=== PATIENT | female | born 1940 | race African-American/Black ===

== ENCOUNTER 2016-07-29 09:18 | Emergency (ER) | payer MEDICARE, MEDICAID ==
[~2016-07-29] VITALS: Ht 165.1 cm; Wt 72.0 kg
[~2016-07-29 09:18] MED LIST: ACET-3161 PO; ALLO100T PO; AMLO10TA80 PO; ATOR20TA PO; B50 PO; BENA40TA3 PO; CALC0.253 PO; CALC667C PO; CLON1PAT11 TD; FERR142T6 PO; FURO40TA5 PO; HYDR-3927 GT; KDUR20 PO; LORA0.5T2 PO; RISP1TAB26 PO; TRAV5DRO4 BOTHEYE; VALS320T9 PO; [UNRECOGNIZED DRUG - CODE] BOTHEYE; [UNRECOGNIZED DRUG - CODE] IJ
[2016-07-29 10:53] LABS: BASOPHILS % 0.5 % (0.0-2.0); DIFFERENTIAL COMMENT 0; EOSINOPHILS % 1.8 % (0.0-5.0); LYMPHOCYTES % 19.4 % (20.0-50.0); MEAN CORPUSCULAR HEMOGLOBIN 34.5 pg (28.0-32.0); MEAN CORPUSCULAR HGB CONC 33.3 g/dL (31.0-37.0); MEAN CORPUSCULAR VOLUME 103.7 fL (81.0-99.0); MEAN PLATELET VOLUME 8.4 fl (7.4-10.4); MONOCYTES % 12.8 % (2.0-8.0); NEUTROPHILS % 65.5 % (40.0-76.0); PLATELET 159 x1000/uL (130-400); RED BLOOD CELL COUNT 2.89 mill/uL (4.2-5.4); RED CELL DISTRIBUTION WIDTH 15.7 % (11.6-14.6); WHITE BLOOD COUNT 5.2 x1000/uL (4.5-11.0)
[2016-07-29 10:56] LABS: PARTIAL THROMBOPLASTIN TIME 23.4 sec (24.0-34.0); PROTHROMBIN TIME 10.9 sec
[2016-07-29 11:08] LABS: ALANINE AMINOTRANSFERASE 74 IU/L (13-61); ALBUMIN 3.4 g/dL (3.4-5.0); ANION GAP 12; CARBON DIOXIDE 32 mEq/L (21-32); CHLORIDE 100 mEq/L (98-107); INDEX HEMOLYSI 1 (1-3); INDEX ICTERIC 1 (1-4); INDEX LIPEMIC 1 (1-3); NT PRO B-TYPE NATRIURETIC PEP 10129 pg/mL (5-125); TROPONIN I < 0.02 ng/mL (0.00-0.04); UREA NITROGEN BLOOD 19 mg/dL (7-21); eGFR 15 mL/min (>60)
[2016-07-29 16:27] VITALS: BP 135/70
== END 2016-07-29 16:29 | disposition home or self-care (01) ==
LOC: ER 11:53
DX: N19 Unspecified kidney failure (principal); I12.9 Hypertensive chronic kidney disease with stage 1 through stage 4 chronic kidney disease, or unspecified chronic kidney disease; N18.9 Chronic kidney disease, unspecified; M19.90 Unspecified osteoarthritis, unspecified site; Z79.1 Long term (current) use of non-steroidal anti-inflammatories (NSAID); Z79.899 Other long term (current) drug therapy; Z99.2 Dependence on renal dialysis
CPT/HCPCS: 36415; 71010; 80053; 83880; 84484; 85025; 85610; 85730; 93005; 99285

== ENCOUNTER 2016-12-17 12:17 | Inpatient (IN) | payer MEDICARE, MEDICAID ==
[~2016-12-17] VITALS: Ht 165.1 cm; Wt 71.7 kg
[~2016-12-17 12:17] MED LIST changes: +VALS320T2 PO; -VALS320T9 PO
[2016-12-17 13:04] LABS: BASOPHILS % 0.8 % (0.0-2.0); HEMATOCRIT. 35.6 % (36.0-48.0); LYMPHOCYTES % 8.5 % (20.0-50.0); MEAN CORPUSCULAR HEMOGLOBIN 33.1 pg (28.0-32.0); MEAN CORPUSCULAR VOLUME 98.6 fL (81.0-99.0); MEAN PLATELET VOLUME 7.7 fl (7.4-10.4); MONOCYTES % 7.1 % (2.0-8.0); NEUTROPHILS % 82.6 % (40.0-76.0); PLATELET 148 x1000/uL (130-400); RED BLOOD CELL COUNT 3.61 mill/uL (4.2-5.4); RED CELL DISTRIBUTION WIDTH 17.8 % (11.6-14.6)
[2016-12-17 13:12] LABS: PROTHROMBIN TIME 10.1 sec (9.4-11.6)
[2016-12-17 13:14] LABS: CARBON DIOXIDE 34 mEq/L (21-32); CHLORIDE 97 mEq/L (98-107)
[2016-12-17] MEDS ORDERED: MORPHINE SULFATE 4 MG/ML CPJ (NOT FOR IM USE) IV ONE ×2 (13:15→15:45)
[2016-12-17 13:21] LABS: TROPONIN I < 0.02 ng/mL (0.00-0.04)
[2016-12-17] MEDS ORDERED: ASPIRIN 325MG EC TABLET PO ONE (14:15)
[2016-12-17] MEDS ORDERED: AMLODIPINE 10MG TABLET PO ONE (14:45)
[2016-12-17] MEDS ORDERED: DIPHENHYDRAMINE 50MG/ML VIAL IV PRN (15:45)
[2016-12-17] MEDS ORDERED: DOCUSATE SODIUM 100MG CAPSULE PO PRN (15:45)
[2016-12-17] MEDS ORDERED: MAGNESIUM/ALUMINUM HYDROXIDE/SIMETHICONE 30ML UDC PO PRN (15:45)
[2016-12-17] MEDS ORDERED: ACETAMINOPHEN 325MG TABLET PO PRN (15:45)
[2016-12-17] MEDS ORDERED: LORAZEPAM 0.5MG TABLET PO PRN (15:45)
[2016-12-17 16:50] VITALS: BP 171/78
[2016-12-17 18:00] VITALS: BP 171/78
[2016-12-17] MEDS: CLONIDINE 0.1MG TABLET PO PRN (18:20)
[2016-12-17 20:00] VITALS: BP 157/77
[2016-12-18] VITALS: BP 160/71
[2016-12-18] MEDS: CLONIDINE 0.1MG TABLET PO PRN (00:26)
[2016-12-18 04:00] VITALS: BP 156/68
[2016-12-18] MEDS: HYDROCODONE/ACETAMINOPHEN 5/325MG TABLET PO PRN ×3 (04:46→18:48)
[2016-12-18] MEDS ORDERED: DEXTROSE 50% WATER 50ML SYRINGE IV PRN (07:00)
[2016-12-18] MEDS ORDERED: BLOOD SUGAR DIAGNOSTIC STRIP TEST SCH (07:20)
[2016-12-18 07:25] LABS: HEMATOCRIT. 32.6 % (36.0-48.0); HEMOGLOBIN. 10.7 g/dL (12.0-16.0); MEAN CORPUSCULAR HEMOGLOBIN 32.7 pg (28.0-32.0); MEAN CORPUSCULAR VOLUME 99.2 fL (81.0-99.0); MEAN PLATELET VOLUME 7.8 fl (7.4-10.4); PLATELET 145 x1000/uL (130-400); RED BLOOD CELL COUNT 3.29 mill/uL (4.2-5.4); RED CELL DISTRIBUTION WIDTH 17.3 % (11.6-14.6)
[2016-12-18 07:43] LABS: CARBON DIOXIDE 29 mEq/L (21-32); CHLORIDE 97 mEq/L (98-107); HDL CHOLESTEROL 93 mg/dL (40-59); LDL CHOLESTEROL 35 mg/dL (5-100)
[2016-12-18] MEDS ORDERED: INSULIN LISPRO 100 UNITS/ML SUBCUT SCH (07:50)
[2016-12-18] MEDS: ASPIRIN 81MG EC TABLET PO SCH (08:36)
[2016-12-18 10:15] VITALS: BP 146/65
[2016-12-18] MEDS: AMLODIPINE 10MG TABLET PO SCH ×2 (11:00→18:47)
[2016-12-18] MEDS ORDERED: LEVOFLOXACIN 500MG PREMIX 100 ML IV SCH (12:00)
[2016-12-18 13:36] LABS: PLATELET ESTIMATE NORMAL
[2016-12-18] MEDS: CALCIUM ACETATE 667MG CAPSULE PO SCH ×2 (15:07→17:50)
[2016-12-18 16:00] VITALS: BP 144/67
[2016-12-18 20:00] VITALS: BP 139/62
[2016-12-18] MEDS: OMEPRAZOLE 20MG CAPSULE EXTENDED RELEASE PO SCH (20:44)
[2016-12-18] MEDS: BENAZEPRIL 20MG TABLET PO SCH (20:44)
[2016-12-19] VITALS: BP 152/66
[2016-12-19] MEDS: HYDROCODONE/ACETAMINOPHEN 5/325MG TABLET PO PRN ×2 (01:21→11:27)
[2016-12-19 04:00] VITALS: BP 151/89
[2016-12-19] MEDS: OMEPRAZOLE 20MG CAPSULE EXTENDED RELEASE PO SCH (06:32)
[2016-12-19 06:40] LABS: HEMATOCRIT 32.4 % (36.0-48.0); HEMOGLOBIN 10.8 g/dL (12.0-16.0); MEAN CORPUSCULAR HEMOGLOBIN 33.2 pg (28.0-32.0); MEAN CORPUSCULAR VOLUME 99.8 fL (81.0-99.0); PLATELET 122 x1000/uL (130-400); RED BLOOD CELL COUNT 3.25 mill/uL (4.2-5.4); RED CELL DISTRIBUTION WIDTH 17.8 % (11.6-14.6)
[2016-12-19 07:39] VITALS: BP 134/65
[2016-12-19] MEDS: AMLODIPINE 10MG TABLET PO SCH (08:21)
[2016-12-19] MEDS: CALCIUM ACETATE 667MG CAPSULE PO SCH ×3 (08:21→17:16)
[2016-12-19] MEDS: ASPIRIN 81MG EC TABLET PO SCH (08:21)
[2016-12-19] MEDS: FOLIC ACID/VITAMIN B COMP W-C TABLET PO SCH (08:21)
[2016-12-19 12:00] VITALS: BP 134/89
[2016-12-19 15:33] LABS: T4 FREE 1.37 ng/dL (0.76-1.46)
[2016-12-19 15:35] VITALS: BP 151/66
[2016-12-19 18:29] LABS: CREATINE KINASE 62 IU/L (26-192); CREATINE KINASE MB FRACTION 1.2 ng/mL (0.5-3.6); TROPONIN I < 0.02 ng/mL (0.00-0.04)
[2016-12-19 20:00] VITALS: BP 153/61
[2016-12-19] MEDS: BENAZEPRIL 20MG TABLET PO SCH (20:57)
[2016-12-20] VITALS: BP 145/59
[2016-12-20 01:15] LABS: CREATINE KINASE 57 IU/L (26-192)
[2016-12-20 01:17] LABS: CREATINE KINASE MB FRACTION 1.5 ng/mL (0.5-3.6); TROPONIN I < 0.02 ng/mL (0.00-0.04)
[2016-12-20] MEDS: HYDROCODONE/ACETAMINOPHEN 5/325MG TABLET PO PRN ×3 (02:10→22:15)
[2016-12-20 04:00] VITALS: BP 144/82
[2016-12-20 08:00] VITALS: BP 157/73
[2016-12-20] MEDS: AMLODIPINE 10MG TABLET PO SCH (08:50)
[2016-12-20] MEDS: CALCIUM ACETATE 667MG CAPSULE PO SCH ×2 (09:06→13:46)
[2016-12-20] MEDS: FAMOTIDINE 20MG TABLET PO SCH (09:06)
[2016-12-20] MEDS: FOLIC ACID/VITAMIN B COMP W-C TABLET PO SCH (09:06)
[2016-12-20] MEDS: ASPIRIN 81MG EC TABLET PO SCH (09:06)
[2016-12-20] MEDS ORDERED: LEVOFLOXACIN 500MG PREMIX 100 ML IV SCH (11:00)
[2016-12-20 12:00] VITALS: BP 156/72
[2016-12-20 12:12] LABS: BASOPHILS % 1.4 % (0.0-2.0); EOSINOPHILS % 1.7 % (0.0-5.0); HEMATOCRIT. 32.7 % (36.0-48.0); HEMOGLOBIN. 10.9 g/dL (12.0-16.0); LYMPHOCYTES % 13.4 % (20.0-50.0); MEAN CORPUSCULAR HEMOGLOBIN 32.7 pg (28.0-32.0); MEAN CORPUSCULAR VOLUME 98.1 fL (81.0-99.0); MEAN PLATELET VOLUME 7.6 fl (7.4-10.4); MONOCYTES % 8.6 % (2.0-8.0); NEUTROPHILS % 74.9 % (40.0-76.0); PLATELET 147 x1000/uL (130-400); RED BLOOD CELL COUNT 3.33 mill/uL (4.2-5.4); RED CELL DISTRIBUTION WIDTH 17.7 % (11.6-14.6)
[2016-12-20 12:37] LABS: CARBON DIOXIDE 30 mEq/L (21-32); CHLORIDE 99 mEq/L (98-107); CREATINE KINASE 61 IU/L (26-192); CREATINE KINASE MB FRACTION 1.4 ng/mL (0.5-3.6); PHOSPHORUS 1.7 mg/dL (2.5-4.9); TROPONIN I < 0.02 ng/mL (0.00-0.04)
[2016-12-20 16:20] VITALS: BP 147/56
[2016-12-20] MEDS ORDERED: SODIUM PHOS,M-BASIC-D-BASIC 15 MM in DEXT 5% WATER 245 ML IV NR (17:00)
[2016-12-20 20:00] VITALS: BP 148/54
[2016-12-20] MEDS ORDERED: EPOETIN ALFA 4000UNITS/ML VIAL SUBCUT SCH (21:00)
[2016-12-21] VITALS (25 sets, daily range): BP systolic 131–164; BP diastolic 53–91
[2016-12-21 07:08] LABS: PARTIAL THROMBOPLASTIN TIME 28.6 sec (23.4-31.0); PROTHROMBIN TIME 10.7 sec (9.4-11.6)
[2016-12-21] MEDS ORDERED: IOHEXOL-300 100 ML BOTTLE ONE (07:25)
[2016-12-21] MEDS ORDERED: LIDOCAINE HCL 1% 20ML VIAL (Pyxis) INJ ONE (07:26)
[2016-12-21 07:41] LABS: BASOPHILS % 0.8 % (0.0-2.0); EOSINOPHILS % 3.3 % (0.0-5.0); HEMATOCRIT. 32.5 % (36.0-48.0); HEMOGLOBIN. 10.9 g/dL (12.0-16.0); LYMPHOCYTES % 22.3 % (20.0-50.0); MEAN CORPUSCULAR HEMOGLOBIN 33.2 pg (28.0-32.0); MEAN CORPUSCULAR VOLUME 98.6 fL (81.0-99.0); MEAN PLATELET VOLUME 8.1 fl (7.4-10.4); MONOCYTES % 13.7 % (2.0-8.0); NEUTROPHILS % 59.9 % (40.0-76.0); PLATELET 158 x1000/uL (130-400); RED BLOOD CELL COUNT 3.29 mill/uL (4.2-5.4); RED CELL DISTRIBUTION WIDTH 17.7 % (11.6-14.6)
[2016-12-21] MEDS ORDERED: FENTANYL CITRATE/PF 50MCG/ML 2ML VIAL ONE (07:47)
[2016-12-21] MEDS ORDERED: MIDAZOLAM HCL 2 MG/2 ML VIAL ONE (07:47)
[2016-12-21] MEDS ORDERED: ATROPINE SULFATE 0.1MG/ML 10ML DISP.SYRIN ONE (07:49)
[2016-12-21 08:26] LABS: BG BASE EXCESS 2.1 mmol/L (-2.0-2.0); BG CARBOXYHEMOGLOBIN 0.5 % (0.5-1.5); BG DEOXYHEMOGLOBIN 16.1 % (0.0-5.0); BG FRACTION INSPIRED OXYGEN 30; BG HCO3 ACT 27.8 mmol/L (22.0-26.0); BG METHEMOGLOBIN 0.3 % (0.0-1.5); BG OXYGEN SATURATION 83.8 % (92.0-98.5); BG OXYHEMOGLOBIN 83.1 % (94.0-97.0); BG PH 7.381 (7.350-7.450); BG PO2 49.8 mmHg (75.0-100.0); BG SAMPLE SITE PA LINE; BG TOTAL HEMOGLOBIN 12.1 g/dL (12.0-18.0); BG VENT MODE NASAL CANNULA
[2016-12-21 08:28] LABS: BG BASE EXCESS 2.3 mmol/L (-2.0-2.0); BG CARBOXYHEMOGLOBIN 0.6 % (0.5-1.5); BG DEOXYHEMOGLOBIN 0.6 % (0.0-5.0); BG FRACTION INSPIRED OXYGEN 30; BG HCO3 ACT 27.3 mmol/L (22.0-26.0); BG METHEMOGLOBIN 0.1 % (0.0-1.5); BG OXYGEN SATURATION 99.4 % (92.0-98.5); BG OXYHEMOGLOBIN 98.7 % (94.0-97.0); BG PCO2 44.1 mmHg (35.0-45.0); BG PO2 196.8 mmHg (75.0-100.0); BG SAMPLE SITE A-LINE; BG TOTAL HEMOGLOBIN 12.3 g/dL (12.0-18.0); BG VENT MODE NASAL CANNULA
[2016-12-21] MEDS ORDERED: HYDRALAZINE 20MG/ML VIAL ONE (08:31)
[2016-12-21 08:34] LABS: PHOSPHORUS 4.3 mg/dL (2.5-4.9)
[2016-12-21 08:36] LABS: BG BASE EXCESS 3.4 mmol/L (-2.0-2.0); BG CARBOXYHEMOGLOBIN 0.6 % (0.5-1.5); BG DEOXYHEMOGLOBIN 16.8 % (0.0-5.0); BG FRACTION INSPIRED OXYGEN 30; BG HCO3 ACT 29.5 mmol/L (22.0-26.0); BG METHEMOGLOBIN 0.2 % (0.0-1.5); BG OXYGEN SATURATION 83.1 % (92.0-98.5); BG OXYHEMOGLOBIN 82.4 % (94.0-97.0); BG PCO2 51.5 mmHg (35.0-45.0); BG PH 7.376 (7.350-7.450); BG PIP 0 cmH2O; BG PO2 48.1 mmHg (75.0-100.0); BG SAMPLE SITE PA LINE; BG VENT MODE NASAL CANNULA
[2016-12-21] MEDS: AMLODIPINE 10MG TABLET PO SCH ×2 (08:55→11:17)
[2016-12-21] MEDS: ASPIRIN 81MG EC TABLET PO SCH ×2 (08:55→11:17)
[2016-12-21] MEDS: FAMOTIDINE 20MG TABLET PO SCH ×2 (08:55→11:17)
[2016-12-21] MEDS: FOLIC ACID/VITAMIN B COMP W-C TABLET PO SCH ×2 (08:55→11:17)
[2016-12-21] MEDS ORDERED: ATROPINE SULFATE 1MG/10ML SYR IV PRN (09:30)
[2016-12-21] MEDS: HYDROCODONE/ACETAMINOPHEN 5/325MG TABLET PO PRN (11:10)
[2016-12-21] MEDS ORDERED: METOPROLOL TARTRATE 25MG TABLET PO SCH (21:00)
== END 2016-12-21 18:50 | disposition home or self-care (01) | DRG 286 ==
LOC: EDBD → ER 12:24 → EDBEDREQ 14:50 → EDBEDREQTM 14:50 → ENRESERV 15:31 → 6WST 16:43 → 3WST 12-21 09:10
PROVIDERS: ADMIT Internal Medicine; ATTEND Internal Medicine
PROC: 5A1D60Z (ICD-10-PCS; 2016-12-18)
PROC: 4A023N8 Measurement of Cardiac Sampling and Pressure, Bilateral, Percutaneous Approach (ICD-10-PCS; principal; 2016-12-21)
PROC: B2111ZZ Fluoroscopy of Multiple Coronary Arteries using Low Osmolar Contrast (ICD-10-PCS; 2016-12-21)
PROC: B2151ZZ Fluoroscopy of Left Heart using Low Osmolar Contrast (ICD-10-PCS; 2016-12-21)
DX: I35.0 Nonrheumatic aortic (valve) stenosis (principal); N18.6 End stage renal disease; I27.2 Other secondary pulmonary hypertension; I12.0 Hypertensive chronic kidney disease with stage 5 chronic kidney disease or end stage renal disease; E44.1 Mild protein-calorie malnutrition; D63.8 Anemia in other chronic diseases classified elsewhere; M19.90 Unspecified osteoarthritis, unspecified site; Z99.2 Dependence on renal dialysis; Z79.899 Other long term (current) drug therapy; Z68.26 Body mass index [BMI] 26.0-26.9, adult
CPT/HCPCS: 36415; 36600; 71010; 80048; 80053; 80061; 82306; 82375; 82550; 82553; 82805; 82962; 83036; 83880; 84100; 84439; 84443; 84484; 85025; 85027; 85379; 85610; 85730; 87040; 93005; 93306; 93460; 93970; 96374; 96376; 99285; C1760; C1769; C1887; C1893; J0360; J0461; J0885; J1644; J1956; J2250; J2270; J3010; J3490; J7030; J7050; J7060; Q9967

== ENCOUNTER 2017-01-01 18:11 | Inpatient (IN) | payer MEDICAID, MEDICARE ==
[~2017-01-01] VITALS: Ht 162.6 cm; Wt 75.3 kg
[~2017-01-01 18:11] MED LIST changes: -BENA40TA3 PO; -VALS320T2 PO
[2017-01-01] MEDS ORDERED: ASPIRIN 81MG TABLET PO STA (18:28)
[2017-01-01] MEDS: NITROGLYCERIN 0.4MG TABLET SL SL PRN ×2 (18:35→19:34)
[2017-01-01 18:58] LABS: BASOPHILS % 0.8 % (0.0-2.0); EOSINOPHILS % 0.8 % (0.0-5.0); HEMATOCRIT. 33.2 % (36.0-48.0); HEMOGLOBIN. 11.1 g/dL (12.0-16.0); LYMPHOCYTES % 10.6 % (20.0-50.0); MEAN CORPUSCULAR HEMOGLOBIN 33.3 pg (28.0-32.0); MEAN CORPUSCULAR VOLUME 99.5 fL (81.0-99.0); MEAN PLATELET VOLUME 7.3 fl (7.4-10.4); MONOCYTES % 11.4 % (2.0-8.0); NEUTROPHILS % 76.4 % (40.0-76.0); PLATELET 245 x1000/uL (130-400); RED BLOOD CELL COUNT 3.34 mill/uL (4.2-5.4); RED CELL DISTRIBUTION WIDTH 16.7 % (11.6-14.6)
[2017-01-01 19:03] LABS: CHLORIDE 96 mEq/L (98-107)
[2017-01-01 19:05] LABS: PARTIAL THROMBOPLASTIN TIME 22.1 sec (23.4-31.0); PROTHROMBIN TIME 10.6 sec (9.4-11.6)
[2017-01-01 19:08] LABS: CARBON DIOXIDE 32 mEq/L (21-32)
[2017-01-01 19:13] LABS: TROPONIN I < 0.02 ng/mL (0.00-0.04)
[2017-01-01] MEDS ORDERED: ONDANSETRON HCL 4MG/2ML VIAL IV PRN (22:00)
[2017-01-01] MEDS ORDERED: ACETAMINOPHEN 325MG TABLET PO PRN (22:00)
[2017-01-01] MEDS ORDERED: DIPHENHYDRAMINE 50MG/ML VIAL IV PRN (22:00)
[2017-01-01] MEDS ORDERED: MAGNESIUM/ALUMINUM HYDROXIDE/SIMETHICONE 30ML UDC PO PRN (22:00)
[2017-01-01] MEDS ORDERED: MAGNESIUM HYDROXIDE 400MG/5ML 30ML UDC PO PRN (22:15)
[2017-01-01] MEDS ORDERED: TEMAZEPAM 15MG CAPSULE PO PRN (23:30)
[2017-01-01] MEDS: HYDROCODONE/ACETAMINOPHEN 5/325MG TABLET PO PRN (23:47)
[2017-01-01] MEDS: FAMOTIDINE 20MG TABLET PO SCH (23:47)
[2017-01-02 03:39] VITALS: BP 155/64
[2017-01-02 04:00] VITALS: BP 155/84
[2017-01-02] MEDS: SODIUM CHLORIDE 0.9% INJ 3ML FLUSH IVF SCH ×3 (05:01→21:02)
[2017-01-02] MEDS: HYDROCODONE/ACETAMINOPHEN 5/325MG TABLET PO PRN (05:07)
[2017-01-02 08:00] VITALS: BP 148/66
[2017-01-02] MEDS: FOLIC ACID/VITAMIN B COMP W-C TABLET PO SCH (08:37)
[2017-01-02] MEDS: DOCUSATE SODIUM 100MG CAPSULE PO SCH ×2 (08:38→16:45)
[2017-01-02] MEDS: CALCIUM ACETATE 667MG CAPSULE PO SCH ×3 (08:38→16:45)
[2017-01-02] MEDS: METOPROLOL TARTRATE 25MG TABLET PO SCH ×2 (08:38→21:02)
[2017-01-02] MEDS: ASPIRIN 81MG EC TABLET PO SCH (08:39)
[2017-01-02] MEDS: AMLODIPINE 10MG TABLET PO SCH (08:39)
[2017-01-02] MEDS: ENOXAPARIN 30MG/0.3ML SYR SUBCUT SCH (08:40)
[2017-01-02 12:00] VITALS: BP 162/77
[2017-01-02 12:10] LABS: T4 FREE 1.15 ng/dL (0.76-1.46)
[2017-01-02] MEDS: CLONIDINE 0.1MG TABLET PO PRN (14:20)
[2017-01-02 14:22] LABS: CREATINE KINASE 52 IU/L (26-192); CREATINE KINASE MB FRACTION 0.7 ng/mL (0.5-3.6); TROPONIN I < 0.02 ng/mL (0.00-0.04)
[2017-01-02 16:00] VITALS: BP 171/82
[2017-01-02] MEDS ORDERED: POLYETHYLENE GLYCOL 3350 (17GM) 1 DOSE PACK PO SCH (17:45)
[2017-01-02 20:00] VITALS: BP 159/70
[2017-01-02] MEDS: FAMOTIDINE 20MG TABLET PO SCH (21:02)
[2017-01-02 23:48] LABS: CREATINE KINASE 52 IU/L (26-192)
[2017-01-03 00:01] VITALS: BP 154/65
[2017-01-03 00:02] LABS: TROPONIN I < 0.02 ng/mL (0.00-0.04)
[2017-01-03 04:00] VITALS: BP 147/60
[2017-01-03] MEDS: SODIUM CHLORIDE 0.9% INJ 3ML FLUSH IVF SCH ×2 (05:35→13:29)
[2017-01-03 07:39] LABS: CARBON DIOXIDE 30 mEq/L (21-32); CHLORIDE 98 mEq/L (98-107)
[2017-01-03 07:42] LABS: BASOPHILS % 0.6 % (0.0-2.0); EOSINOPHILS % 1.5 % (0.0-5.0); HEMATOCRIT. 28.1 % (36.0-48.0); HEMOGLOBIN. 9.4 g/dL (12.0-16.0); LYMPHOCYTES % 15.8 % (20.0-50.0); MEAN CORPUSCULAR HEMOGLOBIN 33.5 pg (28.0-32.0); MEAN CORPUSCULAR VOLUME 99.9 fL (81.0-99.0); MEAN PLATELET VOLUME 7.6 fl (7.4-10.4); MONOCYTES % 11.3 % (2.0-8.0); NEUTROPHILS % 70.8 % (40.0-76.0); PLATELET 203 x1000/uL (130-400); RED BLOOD CELL COUNT 2.81 mill/uL (4.2-5.4); RED CELL DISTRIBUTION WIDTH 16.8 % (11.6-14.6)
[2017-01-03 07:44] LABS: CREATINE KINASE 29 IU/L (26-192); CREATINE KINASE MB FRACTION 0.6 ng/mL (0.5-3.6); TROPONIN I < 0.02 ng/mL (0.00-0.04)
[2017-01-03 08:00] VITALS: BP 167/75
[2017-01-03] MEDS: DOCUSATE SODIUM 100MG CAPSULE PO SCH (09:00)
[2017-01-03] MEDS: CALCIUM ACETATE 667MG CAPSULE PO SCH ×2 (11:27→13:28)
[2017-01-03] MEDS: FOLIC ACID/VITAMIN B COMP W-C TABLET PO SCH (11:27)
[2017-01-03] MEDS: METOPROLOL TARTRATE 25MG TABLET PO SCH (11:28)
[2017-01-03] MEDS: CLONIDINE 0.1MG TABLET PO PRN (11:28)
[2017-01-03] MEDS: ASPIRIN 81MG EC TABLET PO SCH (11:28)
[2017-01-03] MEDS: AMLODIPINE 10MG TABLET PO SCH (11:28)
[2017-01-03] MEDS: ENOXAPARIN 30MG/0.3ML SYR SUBCUT SCH (11:29)
[2017-01-03 12:00] VITALS: BP 136/60
[2017-01-03] MEDS ORDERED: HYDRALAZINE HCL 50MG TABLET PO SCH (14:00)
[2017-01-03 15:45] VITALS: BP 141/64
[2017-01-03 16:17] VITALS: BP 141/64
[2017-01-03] MEDS ORDERED: METOPROLOL TARTRATE 50MG TABLET PO SCH (21:00)
== END 2017-01-03 18:00 | disposition short-term general hospital (02) | DRG 306 ==
LOC: ER 18:22 → EDBEDREQ 20:20 → 8WST 23:47
PROVIDERS: ADMIT Internal Medicine; ATTEND Internal Medicine
PROC: 5A1D00Z (ICD-10-PCS; principal; 2017-01-03)
DX: I08.0 Rheumatic disorders of both mitral and aortic valves (principal); N18.6 End stage renal disease; I13.2 Hypertensive heart and chronic kidney disease with heart failure and with stage 5 chronic kidney disease, or end stage renal disease; E11.22 Type 2 diabetes mellitus with diabetic chronic kidney disease; I27.2 Other secondary pulmonary hypertension; I50.9 Heart failure, unspecified; R07.89 Other chest pain; M19.90 Unspecified osteoarthritis, unspecified site; I07.1 Rheumatic tricuspid insufficiency; D64.9 Anemia, unspecified; F41.9 Anxiety disorder, unspecified; K59.00 Constipation, unspecified; K30 Functional dyspepsia; Z99.2 Dependence on renal dialysis; Z82.49 Family history of ischemic heart disease and other diseases of the circulatory system; Z95.2 Presence of prosthetic heart valve; Z79.899 Other long term (current) drug therapy; Z83.3 Family history of diabetes mellitus
CPT/HCPCS: 36415; 71010; 80048; 80053; 80061; 82550; 82553; 83036; 83880; 84439; 84443; 84484; 85025; 85379; 85610; 85730; 93005; 93306; 99285; J1650

== ENCOUNTER → 2017-12-27 | Outpatient (CLI) | payer MEDICARE | END | disposition home or self-care (01) | LOC: MAMMO 09:32 | PROVIDERS: ATTEND Family Medicine | DX: Z12.31 Encounter for screening mammogram for malignant neoplasm of breast (principal) | CPT/HCPCS: 77067 ==

== ENCOUNTER 2018-01-14 22:05 | Inpatient (IN) | payer MEDICARE ==
[~2018-01-14] VITALS: Ht 162.6 cm; Wt 71.2 kg
[2018-01-15 00:40] LABS: BASOPHILS % 0.7 % (0.0-2.0); EOSINOPHILS % 1.3 % (0.0-5.0); HEMATOCRIT. 34.4 % (36.0-48.0); HEMOGLOBIN. 11.2 g/dL (12.0-16.0); LYMPHOCYTES % 10.2 % (20.0-50.0); MEAN CORPUSCULAR HEMOGLOBIN 32.3 pg (28.0-32.0); MEAN CORPUSCULAR VOLUME 98.8 fL (81.0-99.0); MEAN PLATELET VOLUME 8.3 fl (7.4-10.4); MONOCYTES % 11.6 % (2.0-8.0); NEUTROPHILS % 76.2 % (40.0-76.0); PLATELET 141 x1000/uL (130-400); RED BLOOD CELL COUNT 3.48 mill/uL (4.2-5.4); RED CELL DISTRIBUTION WIDTH 15.7 % (11.6-14.6)
[2018-01-15 00:48] LABS: CHLORIDE 99 mEq/L (98-107)
[2018-01-15 00:49] LABS: INR 1.1
[2018-01-15] MEDS ORDERED: LORAZEPAM 2MG/ML CPJ IV PRN (05:30)
[2018-01-15] MEDS ORDERED: HYDROCODONE/ACETAMINOPHEN 5/325MG TABLET PO PRN (05:30)
[2018-01-15] MEDS ORDERED: GUAIFENESIN 200MG/10ML SUGAR FREE UDC PO PRN (05:30)
[2018-01-15] MEDS ORDERED: IPRATROPIUM/ALBUTEROL 0.5-3(2.5)MG/3ML NEB INH PRN (05:30)
[2018-01-15] MEDS ORDERED: ENOXAPARIN 40MG/0.4ML SYR SUBCUT SCH (05:30)
[2018-01-15] MEDS ORDERED: CLONIDINE 0.1MG TABLET PO PRN (05:30)
[2018-01-15] MEDS ORDERED: NA PHOS,M-B/NA PHOS,DI-BA ENEMA 118ML PR PRN (05:30)
[2018-01-15] MEDS ORDERED: DOCUSATE SODIUM 100MG CAPSULE PO PRN (05:30)
[2018-01-15] MEDS ORDERED: MORPHINE SULFATE 4 MG/ML CPJ (NOT FOR IM USE) IV PRN (05:30)
[2018-01-15] MEDS ORDERED: MAGNESIUM/ALUMINUM HYDROXIDE/SIMETHICONE 30ML UDC PO PRN (05:30)
[2018-01-15] MEDS ORDERED: ONDANSETRON HCL 4MG/2ML INJ IV PRN (05:30)
[2018-01-15] MEDS ORDERED: DIPHENHYDRAMINE 50MG/ML VIAL IV PRN (05:30)
[2018-01-15 06:25] LABS: CHLORIDE 100 mEq/L (98-107)
[2018-01-15 08:00] VITALS: BP 139/59
[2018-01-15] MEDS: ACETAMINOPHEN 325MG TABLET PO PRN ×2 (11:27→21:35)
[2018-01-15] MEDS: ASPIRIN 81MG EC TABLET PO SCH (11:27)
[2018-01-15] MEDS: ENOXAPARIN 30MG/0.3ML SYR SUBCUT SCH (11:28)
[2018-01-15 12:00] VITALS: BP 123/54
[2018-01-15 12:37] VITALS: BP 139/59
[2018-01-15] MEDS: SEVELAMER CARBONATE 800 MG TABLET PO SCH ×2 (15:24→17:21)
[2018-01-15 16:00] VITALS: BP 127/48
[2018-01-15 16:52] LABS: CREATINE KINASE 87 IU/L (26-192)
[2018-01-15] MEDS: CALCIUM ACETATE 667MG CAPSULE PO SCH (17:21)
[2018-01-15 20:00] VITALS: BP 137/47
[2018-01-16] VITALS: BP 130/49
[2018-01-16 01:05] LABS: CREATINE KINASE MB FRACTION 1.3 ng/mL (0.5-3.6)
[2018-01-16 04:00] VITALS: BP 139/52
[2018-01-16] MEDS: SEVELAMER CARBONATE 800 MG TABLET PO SCH ×3 (10:50→18:32)
[2018-01-16] MEDS: CALCIUM ACETATE 667MG CAPSULE PO SCH ×3 (10:53→18:31)
[2018-01-16] MEDS: CALCITRIOL 0.25MCG CAPSULE PO SCH (10:58)
[2018-01-16] MEDS: ALLOPURINOL 100 MG TABLET PO SCH (10:59)
[2018-01-16] MEDS: ASPIRIN 81MG EC TABLET PO SCH (10:59)
[2018-01-16] MEDS: FOLIC ACID/VITAMIN B COMP W-C TABLET PO SCH (10:59)
[2018-01-16] MEDS: AMLODIPINE 10MG TABLET PO SCH (11:00)
[2018-01-16] MEDS: FUROSEMIDE 40MG TABLET PO SCH (11:00)
[2018-01-16] MEDS: ACETAMINOPHEN 325MG TABLET PO PRN ×2 (11:01→18:37)
[2018-01-16] MEDS: ENOXAPARIN 30MG/0.3ML SYR SUBCUT SCH (11:02)
[2018-01-16 12:00] VITALS: BP 147/63
[2018-01-16 12:05] LABS: HEMATOCRIT. 34.4 % (36.0-48.0); HEMOGLOBIN. 11.4 g/dL (12.0-16.0); LYMPHOCYTES % 14.8 % (20.0-50.0); MEAN CORPUSCULAR HEMOGLOBIN 32.8 pg (28.0-32.0); MEAN PLATELET VOLUME 8.2 fl (7.4-10.4); MONOCYTES % 13.9 % (2.0-8.0); NEUTROPHILS % 68.3 % (40.0-76.0); PLATELET 167 x1000/uL (130-400); RED BLOOD CELL COUNT 3.48 mill/uL (4.2-5.4); RED CELL DISTRIBUTION WIDTH 15.6 % (11.6-14.6)
[2018-01-16 12:19] LABS: CHLORIDE 101 mEq/L (98-107)
[2018-01-16 12:28] LABS: CREATINE KINASE MB FRACTION 1.1 ng/mL (0.5-3.6); T4 FREE 1.69 ng/dL (0.76-1.46)
[2018-01-16 12:31] LABS: LDL CHOLESTEROL 25 mg/dL (5-100)
[2018-01-16 12:32] LABS: HDL CHOLESTEROL 85 mg/dL (40-59)
[2018-01-16 12:34] LABS: CREATINE KINASE 80 IU/L (26-192)
[2018-01-16] MEDS ORDERED: IOHEXOL-350 100 ML BOTTLE ONE (17:00)
[2018-01-16 20:00] VITALS: BP 124/55
[2018-01-17] MEDS: ACETAMINOPHEN 325MG TABLET PO PRN ×2 (00:05→13:56)
[2018-01-17 00:13] VITALS: BP 156/64
[2018-01-17 04:05] VITALS: BP 112/58
[2018-01-17] MEDS: SEVELAMER CARBONATE 800 MG TABLET PO SCH ×2 (07:54→13:29)
[2018-01-17] MEDS: CALCIUM ACETATE 667MG CAPSULE PO SCH ×2 (07:54→13:29)
[2018-01-17 08:00] VITALS: BP 91/72
[2018-01-17] MEDS: AMLODIPINE 10MG TABLET PO SCH (08:16)
[2018-01-17] MEDS: FUROSEMIDE 40MG TABLET PO SCH (08:16)
[2018-01-17] MEDS: ASPIRIN 81MG EC TABLET PO SCH (08:39)
[2018-01-17] MEDS: ALLOPURINOL 100 MG TABLET PO SCH (08:39)
[2018-01-17] MEDS: CALCITRIOL 0.25MCG CAPSULE PO SCH (08:39)
[2018-01-17] MEDS: FOLIC ACID/VITAMIN B COMP W-C TABLET PO SCH (08:39)
[2018-01-17] MEDS: ENOXAPARIN 30MG/0.3ML SYR SUBCUT SCH (08:43)
[2018-01-17 12:00] VITALS: BP 172/85
[2018-01-17 15:14] LABS: HEMATOCRIT 34.6 % (36.0-48.0); HEMOGLOBIN 11.5 g/dL (12.0-16.0); MEAN CORPUSCULAR HEMOGLOBIN 32.4 pg (28.0-32.0); PLATELET 202 x1000/uL (130-400); RED BLOOD CELL COUNT 3.53 mill/uL (4.2-5.4); RED CELL DISTRIBUTION WIDTH 15.6 % (11.6-14.6)
[2018-01-17 16:00] VITALS: BP 161/86
== END 2018-01-17 16:40 | disposition home or self-care (01) | DRG 291 ==
LOC: ER 22:09 → 6WST 01-15 01:37 → EDBEDREQTM 01-15 01:41 → EDBEDREQ 01-15 01:41 → EDBEDREQDT 01-15 01:41 → ENRESERV 01-15 07:47
PROVIDERS: ADMIT Internal Medicine; ATTEND Internal Medicine
PROC: 5A1D70Z Performance of Urinary Filtration, Intermittent, Less than 6 Hours Per Day (ICD-10-PCS; principal; 2018-01-15)
PROC: 5A1D70Z Performance of Urinary Filtration, Intermittent, Less than 6 Hours Per Day (ICD-10-PCS; 2018-01-16)
DX: I13.2 Hypertensive heart and chronic kidney disease with heart failure and with stage 5 chronic kidney disease, or end stage renal disease (principal); J96.00 Acute respiratory failure, unspecified whether with hypoxia or hypercapnia; N18.6 End stage renal disease; I50.31 Acute diastolic (congestive) heart failure; E46 Unspecified protein-calorie malnutrition; D64.9 Anemia, unspecified; F32.9 Major depressive disorder, single episode, unspecified; M19.90 Unspecified osteoarthritis, unspecified site; Z99.2 Dependence on renal dialysis; I27.20 Pulmonary hypertension, unspecified; Z68.26 Body mass index [BMI] 26.0-26.9, adult; I25.10 Atherosclerotic heart disease of native coronary artery without angina pectoris; I48.91 Unspecified atrial fibrillation; M10.9 Gout, unspecified; Z82.49 Family history of ischemic heart disease and other diseases of the circulatory system; Z83.3 Family history of diabetes mellitus; Z95.2 Presence of prosthetic heart valve; Z95.5 Presence of coronary angioplasty implant and graft; Z79.899 Other long term (current) drug therapy
CPT/HCPCS: 36415; 71045; 71275; 80048; 80061; 82550; 82553; 83036; 83880; 84439; 84443; 84484; 85027; 85379; 93005; 93306; 93970; 97162; 99285; J1650; J7030; Q9967